=== PATIENT | female | born 1945 | race Caucasian/White ===

== ENCOUNTER 2018-06-27 04:55 | Inpatient (IN) ==
[2018-06-21 15:35] LABS: Appearance,Urine CLEAR; Bacteria,Urine 0 /hpf (0); Bilirubin,Urine NEG (NEG); Color,Urine YELLOW; Glucose,Urine (UA) NEGATIVE (NEG); Leukocyte Esterase,Urine 25 /uL (NEG); Mucus,Urine FEW /hpf (0); Protein,Urine NEG (NEG); Specific Gravity,Urine 1.019 (1.000-1.035); Urine Blood NEG mg/dL (<0.03); Urine RBC 1 /hpf (0-1); Urine Squamous Epithelial Cell 4 /hpf (0-4); Urine Transitional Epi Cells < 1 /hpf (0-2); Urine WBC 4 /hpf (0-4); Urobilinogen,Urine NEG (NEG)
[2018-06-21 16:04] LABS: Estimated Average Glucose(eAG) 105 mg/dL; Hemoglobin A1C 5.3 % HGB (4.0-6.0)
[2018-06-21 16:12] LABS: Basophils # (Auto) 0 K/mcL (0.0-0.3); Basophils % (Auto) 0.7 % (0.0-2.0); Eosinophils # (Auto) 0.3 K/mcL (0.0-0.7); Eosinophils % (Auto) 4.3 % (0.0-7.0); Granulocytes % (Auto) 58.3 % (38.0-78.0); Lymphocytes # (Auto) 2.1 K/mcL (1.5-4.8); Mean Cell Volume 92.2 fL (80.0-100.0); Mean Corpuscular HGB Conc 33.5 g/dL (31.0-36.0); Monocytes # (Auto) 0.6 K/mcL (0.1-0.9); Monocytes % (Auto) 7.7 % (1.0-12.0); Platelet Count 247 K/mcL (140-440); RBC 4.76 M/mcL (4.00-5.20); Red Cell Distribution Width 12.6 % (11.5-14.5)
[2018-06-21 16:16] LABS: Blood Urea Nitrogen 13 mg/dl (8-23)
[2018-06-27] MEDS ORDERED: PREGABALIN 75 MG CAPSULE PO SCH (06:00)
[2018-06-27] MEDS ORDERED: 0.9 % SODIUM CHLORIDE 9 ML, KETOROLAC 30 MG, ROPIVACAINE HCL/PF 49.5 ML, EPINEPHrine 0.... IJ SCH (06:00)
[2018-06-27] MEDS ORDERED: ceFAZolin 2 GM in DEXTROSE 5% IN WATER 50 ML IV SCH (06:00)
[2018-06-27] MEDS ORDERED: oxyCODONE 10 MG TAB.ER.12H PO SCH (06:00)
[2018-06-27] MEDS ORDERED: CELECOXIB 200 MG CAPSULE PO SCH (06:00)
[2018-06-27] MEDS ORDERED: DEXAMETHASONE 4 MG/ML VIAL IV ONE (07:40)
[2018-06-27] MEDS ORDERED: MIDAZOLAM 5 MG/5 ML VIAL IV ONE (07:40)
[2018-06-27] MEDS ORDERED: ONDANSETRON 4 MG/2 ML VIAL IV ONE (07:40)
[2018-06-27] MEDS ORDERED: LIDOCAINE HCL/PF 100 MG/5 ML SYRINGE IV ONE (07:40)
[2018-06-27] MEDS ORDERED: fentaNYL 100 MCG/2 ML VIAL IV ONE (07:40)
[2018-06-27] MEDS ORDERED: PROPOFOL 200 MG/20 ML VIAL IV ONE (07:40)
[2018-06-27] MEDS ORDERED: TRANEXAMIC ACID 1,000 MG/10 ML VIAL IV ONE (07:40)
[2018-06-27] MEDS ORDERED: ROPIVACAINE HCL/PF 20 ML VIAL IJ ONE (07:40)
[2018-06-27] MEDS ORDERED: BENZOCAINE/MENTHOL 1 LOZENGE PO PRN (09:55)
[2018-06-27] MEDS ORDERED: IPRATROPIUM/ALBUTEROL 3 ML AMPUL.NEB NEB PRN (09:55)
[2018-06-27] MEDS ORDERED: METHOCARBAMOL 1,000 MG/10 ML VIAL IV PRN (09:55)
[2018-06-27] MEDS ORDERED: FLUMAZENIL 0.1 MG/ML ML IV PRN (09:55)
[2018-06-27] MEDS ORDERED: ACETAMINOPHEN 1,000 MG/100 ML BOTTLE IV ONE (09:55)
[2018-06-27] MEDS ORDERED: LACTATED RINGERS 250 ML IV PRN (09:55)
[2018-06-27] MEDS ORDERED: MEPERIDINE 25 MG/ML SYRINGE IV PRN (09:55)
[2018-06-27] MEDS ORDERED: ONDANSETRON 4 MG/2 ML VIAL IV PRN (09:55)
[2018-06-27] MEDS ORDERED: NALOXONE HCL 0.4 MG/ML VIAL IV PRN (09:55)
[2018-06-27] MEDS ORDERED: TRANEXAMIC ACID 1,000 MG/10 ML VIAL IV SCH (09:59)
[2018-06-27] MEDS ORDERED: FLEETS ADULT ENEMA PR PRN (09:59)
[2018-06-27] MEDS ORDERED: POLYETHYLENE GLYCOL 3350 17 GM PACKET PO PRN (09:59)
[2018-06-27] MEDS ORDERED: BISACODYL 10 MG SUPP.RECT PR PRN (09:59)
[2018-06-27] MEDS ORDERED: MAGNESIUM HYDROXIDE 30 ML ORAL.SUSP PO PRN (09:59)
--- NOTE | 2018-06-27 09:59 | Brief Operative Note ---
Date of procedure: 06/27/18 Pre-op diagnosis: Left knee severe DJD Post-op diagnosis: same Procedure: Left robotic assisted total knee arthroplasty Grafts/Implants: Yes (Carmi Triathlon CR 4 femur, 4 tibia, 10mm insert, 33mm patella) Anesthesia: spinal, GLMA Findings: severe arthritis, obesity Complications: none Surgeon: Rob Oquendo Plasterer Maintenance: Adelso Henderson Estimated blood loss (cc): 30 Specimens Removed/Pathology: none sent Condition: stable Disposition: PACU
[2018-06-27] MEDS ORDERED: LACTATED RINGERS 1,000 ML IV SCH (10:00)
[2018-06-27] MEDS ORDERED: hydrOXYzine 25 MG TABLET PO PRN (10:07)
[2018-06-27] MEDS ORDERED: NITROGLYCERIN 0.4 MG TAB.SUBL SL PRN (10:07)
[2018-06-27] MEDS ORDERED: ACETAMINOPHEN 325 MG TABLET PO PRN (10:07)
--- NOTE | 2018-06-27 10:45 | Operative Note ---
DATE OF OPERATION: 06/27/2018 PREOPERATIVE DIAGNOSIS: Left knee severe osteoarthritis. POSTOPERATIVE DIAGNOSIS: Left knee severe osteoarthritis. PROCEDURE PERFORMED: Left robotic-assisted total knee arthroplasty placing a size 4 cruciate retaining femoral component, size 4 tibial baseplate, 10 mm X3 tibial insert, and 33 mm patellar button. SURGEON: Rob Oquendo M.D. ACCOUNTS COLLECTOR: Maury Henderson PA-C. ANESTHESIA: Spinal plus general. DRAINS: None. SPECIMENS: Bone cuts which were discarded. BLOOD LOSS: 30 mL. POSTOPERATIVE CONDITION: Stable. INDICATIONS FOR SURGERY: This is a 73-year-old obese female who had longstanding, progressive worsening left knee pain. Radiographs showed [id number] severe osteoarthritis. FINDINGS AT SURGERY: As above. Post implantation showed good limb alignment, patellar tracking, and joint stability. PROCEDURE IN DETAIL: The patient had been seen preoperatively. Informed consent had been obtained after discussion of risks and benefits of surgery. Risks including, but not limited to, bleeding, possibly requiring transfusion; infection, possibly requiring implant removal; anesthetic risks; incomplete or no resolution of symptoms; stiffness; swelling; pain; instability; DVT and pulmonary embolus risks; and the possibility of needing further revision joint surgery. She understood these risks and wished to proceed. Correct operative site was marked and then spinal anesthesia was given. She was then taken to the operating room and LMA general given. The left lower extremity was carefully prepped and draped in normal sterile fashion. A time-out was performed verifying patient name, operative site, and plan. Esmarch was used to exsanguinate the extremity and tourniquet was inflated to 350 mmHg. Ioban was used to cover all skin surfaces, and then a midline incision was made with a scalpel through skin and subcutaneous tissue. Hemostasis was obtained with Bovie cautery. Irrisept was irrigated and then a medial parapatellar arthrotomy was made. Subperiosteal exposure was done of the anterior medial tibia, and then anterior horns of the menisci were removed, and the ACL was transected. The checkpoints were placed in the tibia and femur, and then stab incisions were made over the femur and tibia, and then bicortical pins placed and the arrays were connected. Hip center of rotation was checked, and then medial and lateral malleoli identified with the green probe, and then double checks of the checkpoints were done. We then used the blue probe to do our mapping. After that was completed, we removed osteophytes. We checked our flexion-extension gaps. We ended up placing 3 degrees of varus on the tibia and 2 on the femur. This balanced us at 17 mm on the medial extension and medial flexion and lateral flexion. The lateral extension was unable to be balanced to 17. We then used the robotic arm to make our bone cuts. The tibia was sized to a 4 and externally rotated as bone coverage would allow. This was pinned into place. Boss reamer and keel punch used to prepare the tibia and then a keeled tibial trial placed. A curved osteotome was used to remove osteophytes posteriorly and then a 4 trial was impacted and pinned. We drilled the peg holes and then a femoral trial placed. The 9 insert trial was placed, and the knee was taken into extension. The patella was measured at a 28. We freehand resected down to a 16. She sized to a 33 which we medialized maximally and then drilled the peg holes. The trial patella was placed and then a lateral facetectomy performed. We checked our patellar tracking which was good. Our extension was down to about 5 degrees short of full. We removed the trial implants. Definitive implants were opened. We irrigated with Irrisept, after a minute pulse lavaged copiously with saline, and then a CO2 gun was used to clean and dry the cancellous bone surfaces. We cemented the tibia and excess cement removed. We cemented the femur and excess cement removed. The 9 insert trial was placed, and the knee was taken into extension, and the patellar button was cemented. We filled the joint with Irrisept and then injected pain cocktail. We did remove our checkpoints, as well as our arrays and pins. We then went to flex the knee up and we knocked the patellar button off. This required us to remove cement mantle off the patella and remix a batch of cement and reapply the patella. After it was fully hardened, we placed a 10 insert in after irrigating Irrisept into the tray. We waited a minute, and then pulse lavaged with saline, and the knee was flexed to about 45 degrees. We used #2 FiberWire [id number] around the patella superior quadrant, #1 Vicryl [id number] around the inferior quadrant, running #1 Vicryl for patellar tendon and quad tendon. A final Irrisept irrigation was done, after a minute final pulse lavage, and then fat was closed with Vicryl, and then 2-0 Monocryl for subcutaneous and desi for skin. Xeroform and sterile dressing were applied. Tourniquet was released. The patient was awakened, extubated, and transferred to recovery in stable condition. [email or web address] Job ID: [id number] Doc ID: [id number] Rob Oquendo MD
[2018-06-27] MEDS: fentaNYL 100 MCG/2 ML VIAL IV PRN ×2 (11:09→11:13)
[2018-06-27] MEDS: KETOROLAC 15 MG/ML VIAL IV SCH ×3 (11:30→23:17)
[2018-06-27] MEDS: 0.9 % SODIUM CHLORIDE 1,000 ML IV SCH ×2 (11:31→22:08)
--- NOTE | 2018-06-27 11:55 | XRay Report ---
CLINICAL INFORMATION: Post-op total knee COMPARISON: Preoperative films of 08/19/2011. FINDINGS: Total knee prostheses is anatomically aligned. No osseous abnormality. Periarticular gas and soft tissue swelling seen as expected. IMPRESSION: Negative Interpreted and Authenticated by: Gerard Patterson 06/27/18
[2018-06-27] MEDS: HYDROmorphone 2 MG/ML VIAL IV PRN ×2 (12:11→23:29)
[2018-06-27] MEDS: 0.9 % SODIUM CHLORIDE 10 ML SYRINGE IV SCH ×2 (14:40→22:09)
[2018-06-27] MEDS: ceFAZolin 1 GM VIAL IV SCH ×2 (15:09→23:16)
[2018-06-27] MEDS: ONDANSETRON 4 MG/2 ML VIAL IV PRN ×2 (15:56→23:58)
[2018-06-27] MEDS: HYDROcodone/APAP 10/325MG TABLET PO PRN ×2 (19:36→23:29)
[2018-06-27] MEDS: ASPIRIN 81 MG TAB.CHEW PO SCH (20:53)
[2018-06-27] MEDS: DOCUSATE SODIUM 100 MG CAPSULE PO SCH (20:53)
[2018-06-27] MEDS ORDERED: EZETIMIBE 10 MG TABLET PO SCH (21:00)
[2018-06-27] MEDS ORDERED: MELATONIN 3 MG TABLET PO PRN (21:00)
[2018-06-27] MEDS ORDERED: SENNOSIDES 1 TABLET PO SCH (21:00)
[2018-06-28] MEDS: BENZOCAINE/MENTHOL 1 LOZENGE PO PRN ×2 (03:36→13:50)
[2018-06-28] MEDS: HYDROcodone/APAP 10/325MG TABLET PO PRN ×2 (06:57→12:07)
[2018-06-28] MEDS: 0.9 % SODIUM CHLORIDE 10 ML SYRINGE IV SCH ×2 (06:57→15:07)
[2018-06-28] MEDS: KETOROLAC 15 MG/ML VIAL IV SCH ×2 (06:58→12:07)
[2018-06-28] MEDS ORDERED: OMEPRAZOLE 20 MG CAPSULE PO SCH (07:30)
--- NOTE | 2018-06-28 07:52 | Discharge Summary ---
Providers - Providers Patient information: Note initiated : 06/28/18 at 7:50 am Service Date, if different from initiated Date: [] Patient: Lizett Tamayo 73 y/o F admitted on 06/27/18 for Left Total Knee Arthroplasty [place] . Chief Complaint: [] Discharge date: 06/28/18 Hospitalization Hospital course: Pt was admitted for a R TKA. Pt underwent the procedure on the day of admission. Pt spent one night on the floor for IV pain meds, IV abx, and PT. Pt discharged post-op day 1. Will take ASA for DVT prophylaxis. Will f/u in 2 weeks. Discharge diagnosis: L knee OA Exam - Exam Clean and dry: Yes Weight bearing status: as tolerated Ortho Discharge - TKA - Patient Instructions Diet: Regular Diet Activity: activity as tolerated Total Knee Protocol: For Total Knee: Start ROM VERONIKA with stationary bike or rocking chair. Work on gaining full extension of knee. Posterior dislocation precautions provided. Hip abductor strengthening and gait training instructions provided. Apply Cryocuff as instructed. Dressing Care: May shower in 2 days - Follow Up Plan Follow Up Appointments: Adelso Henderson PA-C [Physician [facility]] - 07/12/18 1:10 pm Disposition: Home, Self-Care Prognosis: Good Rehab Potential: Good Overall status at discharge: patient is progressing back to baseline - Orders For Discharge Prescriptions: Aspirin 81 mg PO BID #30 tab.chew HYDROcodone/APAP 10/325MG [[place] 10-325Mg] 1 - 2 tab PO Q4HP PRN #90 tab PRN Reason: Pain Level 3-6 Pending Studies Resuscitation Status Full Code Diet Consistent Carbohydrate Diet Start MonJune 27 1002 Hydrocodone Bitart/Acetaminophen ([place] 10/325mg) 0 tab PO Q4HP PRN PRN Reason: PAIN LEVEL 3-6 Last Admin: 06/28/18 06:57 Dose: 2 tab Documented by: Admin: 06/27/18 23:29 Dose: 2 tab Documented by: Admin: 06/27/18 19:36 Dose: 1 tab Documented by: JERStephanie Aspirin (Aspirin) 81 mg PO BID [facility] Last Admin: 06/27/18 20:53 Dose: 81 mg Documented by: SONIA Docusate Sodium (Colace) 100 mg PO BID [facility] Last Admin: 06/27/18 20:53 Dose: 100 mg Documented by: SONIA Ezetimibe (Zetia) 10 mg PO HS [facility] Last Admin: 06/27/18 20:52 Dose: 10 mg Documented by: SONIA Hydromorphone HCl (Dilaudid) 0 mg IV Q2HP PRN PRN Reason: PAIN LEVEL > 6 Last Admin: 06/27/18 23:29 Dose: 2 mg Documented by: Admin: 06/27/18 12:11 Dose: 0.5 mg Documented by: AVERY Hydroxyzine HCl (Atarax) 25 mg PO DAILYP PRN PRN Reason: Anxiety Last Admin: 06/28/18 01:56 Dose: 25 mg Documented by: SONIA Ketorolac Tromethamine (Toradol) 15 mg IV Q6 [facility] Stop: 06/29/18 06:01 Last Admin: 06/28/18 06:58 Dose: 15 mg Documented by: Admin: 06/27/18 23:17 Dose: 15 mg Documented by: Admin: 06/27/18 17:48 Dose: 15 mg Documented by: Admin: 06/27/18 11:30 Dose: 15 mg Documented by: AVERY Omeprazole (Prilosec) 20 mg PO ACB [facility] Last Admin: 06/28/18 06:57 Dose: 20 mg Documented by: JENNA Ondansetron HCl (Zofran) 4 mg IV Q4HP PRN PRN Reason: Nausea And Vomiting Last Admin: 06/27/18 23:58 Dose: 4 mg Documented by: Admin: 06/27/18 15:56 Dose: 4 mg Documented by: AVERY Senna (Senokot) 2 tab PO [facility] Last Admin: 06/27/18 20:53 Dose: Not Given Documented by: SONIA Sodium Chloride (Saline Flush) 10 ml IV Q8 [facility] Last Admin: 06/28/18 06:57 Dose: 10 ml Documented by: Admin: 06/27/18 22:09 Dose: Not Given Documented by: Admin: 06/27/18 14:40 Dose: Not Given Documented by: AVERY Throat Lozenges (Cepacol) 1 lozenge PO PRN PRN PRN Reason: Sore Throat Last Admin: 06/28/18 03:36 Dose: 1 lozenge Documented by: SONIA Shift Summary 06/28/18 03:56 Shift Summary by Maranda Calle Addendum entered by Maranda Calle R.N. 06/28/18 04:10: Dressing to L knee has quarter size sanguinous drainage. Original Note: A&O x4. Pt struggling with nausea/vomiting this shift - Zofran x1. Pt contributes most N/V to her hiatal hernia, GERD and heartburn and states that this is not terribly new or unusual for her. Pt has not slept much tonight. Up to BR with FWW, GB and SBA. Dilaudid given x1 for 9/10 pain. [place] 10 x2 this shift. Ceptacol given x1 for sore throat. Pt ambulated halls last night x1. CPM to 45 degrees. IV to L forearm is SL and patent. Initialized on 06/28/18 03:56 - END OF NOTE
[2018-06-28] MEDS: DOCUSATE SODIUM 100 MG CAPSULE PO SCH (08:24)
[2018-06-28] MEDS: ASPIRIN 81 MG TAB.CHEW PO SCH (08:24)
[2018-06-28] MEDS ORDERED: DILTIAZEM 240 MG CAP.XL.24H PO SCH (09:00)
[2018-06-28] MEDS ORDERED: [UNRECOGNIZED DRUG - OTHER] PO SCH (09:00)
[2018-06-28] MEDS ORDERED: MULTIVIT,THER IRON,CA,FA & MIN 1 TABLET PO SCH (09:00)
== END 2018-06-28 15:05 | disposition home or self-care (01) | DRG 470 ==
LOC: MEDSUR 04:55
PROVIDERS: ADMIT Orthopaedic Surgery; ATTEND Orthopaedic Surgery